=== PATIENT | female | born 1980 | race Caucasian/White ===

== ENCOUNTER 2016-10-06 12:45 | Inpatient (IN) | payer OTHER ==
[~2016-10-06 12:45] MED LIST: DEXTROSE 5%-LACTATED RINGERS 1,000 ML IV SCH
[2016-10-06 14:55] VITALS: BMI 35.2
[2016-10-06] MEDS ORDERED: ACETAMINOPHEN 325 MG TABLET (FP) PO ONE (15:30)
[2016-10-06 15:48] LABS: BASOPHIL 0.1 % (0-2.0); MCH 26.7 pg (25.7-33.7); MCHC 32.2 g/dl (32.0-36.0); MEAN CELL VOLUME 82.8 fl (80-96); MEAN PLT VOLUME 9.6 fl (7.5-11.1); PLATELET COUNT 202 K/MM3 (134-434); RDW 17.8 % (11.6-15.6); WHITE BLOOD COUNT 15.4 K/mm3 (4.0-10.0)
[2016-10-06 16:04] LABS: INR 0.96 (0.82-1.09); PROTHROMBIN TIME (PATIENT) 10.5 SEC (9.98-11.88)
[2016-10-06 16:07] LABS: ACTIVATED PTT 26.5 SECONDS (26.9-34.4)
[2016-10-06 16:29] LABS: ANION GAP 10 (8-16); CO2 22 mmol/L (21-32); CREATININE 0.8 mg/dL (0.55-1.02); GLUCOSE,RANDOM 100 mg/dL (74-106)
--- NOTE | 2016-10-06 19:17 | HP ---
Past Medical History - Admission Chief Complaint: Leakage of fluid History of Present Illness: 36 yo @ 40 weeks gestation, admitted due to complaints of leaking fluid. She denies any contractions pain nor vaginal bleeding. History Source: Patient Limitations to Obtaining History: No Limitations - Past Medical History ...: 1 ...Para: 0 ...Term: 0 ...: 0 ...Spon : 0 ...Induced : 0 ...Multiple Gestation: 0 ...LMP: 01/02/16 ... Weeks Gestation by Dates: 39.5 ...EDC by Dates: 10/08/16 ...EDC by Sono: 10/06/16 - Past Surgical History Past Surgical History: Yes: None Hx Myomectomy: No Hx Transabdominal Cerclage: No - Smoking History Smoking history: Never smoked Have you smoked in the past 12 months: No Aproximately how many cigarettes per day: 10 - Alcohol/Substance Use Hx Alcohol Use: No - Social History History of Recent Travel: No Home Medications - Allergies Allergies/Adverse Reactions: Allergies Allergy/AdvReac Type Severity Reaction Status Date / Time No Known Drug Allergies Allergy Verified 10/06/16 14:01 SEAFOOD Allergy Rash Uncoded 03/16/16 12:41 - Home Medications Home Medications: Ambulatory Orders Folic Acid 0.4 mg PO DAILY 10/06/16 Pnv95/Ferrous Fumarate/FA [ Vitamin Tablet] 1 each PO DAILY 10/06/16 Family Disease History - Family Disease History Family History: Unremarkable Review of Systems - Review of Systems Constitutional: reports: No Symptoms Eyes: reports: No Symptoms HENT: reports: No Symptoms Neck: reports: No Symptoms Cardiovascular: reports: No Symptoms Respiratory: reports: No Symptoms Gastrointestinal: reports: No Symptoms Genitourinary: reports: Other (Leakage of fluid) Breasts: reports: No Symptoms Reported Musculoskeletal: reports: No Symptoms Integumentary: reports: No Symptoms Neurological: reports: No Symptoms Endocrine: reports: No Symptoms Hematology/Lymphatic: reports: No Symptoms Psychiatric: reports: No Symptoms Pain Intensity: 2 Physical Exam - Maternity Vital Signs: Vital Signs Temperature 99.4 F 10/06/16 18:00 Pulse Rate 98 H 10/06/16 18:00 Respiratory Rate 20 10/06/16 18:00 Blood Pressure 139/71 10/06/16 18:00 O2 Sat by Pulse Oximetry (%) Constitutional: Yes: Well Nourished Eyes: Yes: Conjunctiva Clear HENT: Yes: Atraumatic Neck: Yes: Supple, Trachea Midline Cardiovascular: Yes: Regular Rate and Rhythm Lungs: Clear to auscultation - Abdominal Exam/OB Number of Fetuses: Single Presentation: Vertex Regularity: Irritability Intensity: Unaware - Vaginal Exam/OB Vaginal Bleediing: No Dilatation (cm): 1 Presentation: Vertex/Position Station: -3 - Physical Exam ...Motor Strength: WNL Psychiatric: Yes: Alert, Oriented - Labs Lab Results: CBC, BMP 10/06/16 14:30 10/06/16 14:30 Problem List - Problems (1) Leakage of amniotic fluid Code(s): O42.90 - FLAVIO ROM, 7TH0 BETW RUPT & ONST LABR, UNSP WEEKS OF GEST Assessment/Plan IUP @ 40 weeks R/O SROM Admit to L&D
[2016-10-06] MEDS ORDERED: CITRIC ACID/SODIUM CITRATE 30 ML UNIT-DOSE CUP PO ONE (19:24)
[2016-10-06] MEDS ORDERED: ELECTROLYTE-148 SOLN 500 ML IV ONE (19:24)
--- NOTE | 2016-10-06 19:24 | PN ---
Progress Note (short form) - Note Progress Note: 36 yo , @ 40 weeks gestation, admitted for c/o leakage of fluid. Came to see patient, no contractions pain, no vaginal bleeding. FHR : No accelerations, Non Reassuring [place] : Occasional contractions VE : 4/80 / -3 AROM clear Internal monitoring placed on scalp A / P : IUP @ 40 weeks Non-Reassuring heart rate Counseling to patient regarding delivery plan Consider Prep and shave Anesthesia to see patient Problem List - Problems (1) Leakage of amniotic fluid Code(s): O42.90 - FLAVIO ROM, 7TH0 BETW RUPT & ONST LABR, UNSP WEEKS OF GEST
[2016-10-06] MEDS ORDERED: ONDANSETRON 4 MG/2 ML VIAL IVPB PRN (20:19)
[2016-10-06 21:25] LABS: ARTERIAL BLD GAS O2 SATURATION 45.1 % (90-98.9); ARTERIAL BLOOD GAS BASE EXCESS -2.4 meq/l (-2-2); ARTERIAL BLOOD GAS pH 7.34 (7.35-7.45)
[2016-10-06 21:28] LABS: PT. ON O2? NO
[2016-10-06 21:30] LABS: ARTERIAL BLOOD GAS PO2 23.1 mmHg (80-100)
[2016-10-06] MEDS ORDERED: METHYLERGONOVINE MALEATE 0.2 MG/1 ML AMP IM PRN (21:33)
--- NOTE | 2016-10-06 21:38 | OP ---
Operative Note - Note: Operative Date: 10/06/16 Pre-Operative Diagnosis: Non Reassuring Heart rate Operation: Primary Low transverse Findings: Baby in cephallic presentation with malodorous amniotic fluid. Post-Operative Diagnosis: Same as Pre-op Surgeon: Janice Joshua Feather Stitcher: Mello lEliott Anesthesia: Spinal Specimens Removed: Placenta Estimated Blood Loss (mls): 800
[2016-10-06] MEDS ORDERED: D5W-LR W/ 20 UNITS OXYTOCIN 1,000 ML IV SCH (21:45)
[2016-10-06] MEDS: CLINDAMYCIN 600MG PREMIX IVPB 50 ML IVPB SCH (23:00)
[2016-10-07] MEDS ORDERED: CLINDAMYCIN 600MG PREMIX IVPB 50 ML IVPB SCH (02:53)
[2016-10-07] MEDS: CLINDAMYCIN 600MG PREMIX IVPB 50 ML IVPB SCH ×4 (03:37→22:40)
[2016-10-07] MEDS: AMPICILLIN NA/SULBACTAM NA 1.5 GM in SODIUM CHLORIDE 100 ML IVPB SCH ×4 (03:52→21:56)
[2016-10-07 07:13] LABS: BASOPHIL 0.1 % (0-2.0); MCH 26.5 pg (25.7-33.7); MCHC 31.7 g/dl (32.0-36.0); MEAN CELL VOLUME 83.5 fl (80-96); MEAN PLT VOLUME 9.1 fl (7.5-11.1); NEUTROPHILS 84.7 % (42.8-82.8); PLATELET COUNT 193 K/MM3 (134-434); RDW 17.6 % (11.6-15.6); WHITE BLOOD COUNT 13.9 K/mm3 (4.0-10.0)
[2016-10-07] MEDS ORDERED: OXYCODONE/APAP 5/325MG COMBO TABLET PO PRN (09:02)
--- NOTE | 2016-10-07 09:02 | PN ---
Post Progress Note - Subjective Subjective: 36 yo Para 1, status post primary , seen and evaluated. Doing well, no complaints. T max 100.1 BP 153 / 77 She's on antibiotics. Post Day: 1 Type of Delivery: Primary C/S Vital Signs: Vital Signs Temperature 99.0 F 10/07/16 05:59 Pulse Rate 106 H 10/07/16 05:59 Respiratory Rate 20 10/07/16 06:00 Blood Pressure 130/86 10/07/16 05:59 O2 Sat by Pulse Oximetry (%) 98 10/06/16 22:45 Breast Exam: Yes: Soft Uterus: Yes: Fundus Firm Incision: Yes: Dressing dry and intact Abdomen/GI: Yes: Abdomen soft Lochia: Yes: Rubra Lochia, amount: Small Extremities: Yes: Calves non-tender Activity: Other (She's lying in bed) - Labs Labs: CBC WBC 13.9 K/mm3 (4.0-10.0) H 10/07/16 06:30 RBC 3.36 M/mm3 (3.60-5.2) L 10/07/16 06:30 Hgb 8.9 GM/dL (10.7-15.3) L D 10/07/16 06:30 Hct 28.0 % (32.4-45.2) L 10/07/16 06:30 MCV 83.5 fl (80-96) 10/07/16 06:30 MCH 26.5 pg (25.7-33.7) 10/07/16 06:30 MCHC 31.7 g/dl (32.0-36.0) L 10/07/16 06:30 RDW 17.6 % (11.6-15.6) H 10/07/16 06:30 Plt Count 193 K/MM3 (134-434) 10/07/16 06:30 MPV 9.1 fl (7.5-11.1) 10/07/16 06:30 Neutrophils % 84.7 % (42.8-82.8) H 10/07/16 06:30 Lymphocytes % 9.9 % (8-40) D 10/07/16 06:30 Monocytes % 5.3 % (3.8-10.2) 10/07/16 06:30 Eosinophils % 0.0 % (0-4.5) 10/07/16 06:30 Basophils % 0.1 % (0-2.0) 10/07/16 06:30 Problem List - Problems (1) Leakage of amniotic fluid Code(s): O42.90 - FLAVIO ROM, 7TH0 BETW RUPT & ONST LABR, UNSP WEEKS OF GEST (2) Status post primary low transverse section Code(s): Z98.891 - HISTORY OF UTERINE SCAR FROM PREVIOUS SURGERY Assessment/Plan Status post primary Chorioamnionitis Continue Antibiotics Ambulation Analgesia as needed
[2016-10-07] MEDS ORDERED: oxyCODONE HCL 5 MG TABLET PO PRN (09:07)
--- NOTE | 2016-10-07 09:34 | PN ---
Progress Note (short form) - Note Progress Note: POD #1 - s/p under spinal anesthesia with duramorph. Pt. doing well, resting comfortably in bed. No complaints. Good pain control. No apparent anesthetic complications noted. Continue current care.
[2016-10-07] MEDS ORDERED: ACETAMINOPHEN 325 MG TABLET (FP) PO PRN (09:40)
--- NOTE | 2016-10-07 17:16 | HOSP ---
Physical Examination Vital Signs: Vital Signs Temperature 100.6 F H 10/07/16 14:50 Pulse Rate 114 H 10/07/16 14:50 Respiratory Rate 20 10/07/16 16:00 Blood Pressure 140/86 10/07/16 14:50 O2 Sat by Pulse Oximetry (%) 98 10/06/16 22:45 Labs: CBC, BMP 10/07/16 06:30 10/06/16 14:30
[2016-10-07] MEDS: IBUPROFEN 600 MG TABLET (FP) PO PRN (17:39)
[2016-10-07] MEDS: ACETAMINOPHEN 325 MG TABLET (FP) PO PRN (17:40)
[2016-10-07] MEDS: SIMETHICONE 80 MG TAB.CHEW (FP) PO PRN (17:41)
--- NOTE | 2016-10-07 17:59 | CONSULT ---
Consultation: REQUESTING PROVIDER: Dr Joshua CONSULT REQUEST: We have been asked to medically evaluate this patient for tachycardia, low grade fever . HISTORY OF PRESENT ILLNESS: This is a 36 yo F POD 1 s/p c section complicated by Chorioamnionitis, who developed tachycardia 114 anf fever 100.6. Patient was noted by the BURR GRINDER to have slightly foul smelling red vaginal discharge. Patient has not complaints at this time other than mild incision pain associated with movement. Per nursing staff, her dressings were changed 2x since surgery ans there is minimal serosanguineous discharge. Patient denies f/c, h/a, dizziness, chest pain, sob, cough, hemoptysis, abd pain ither than near incision, flank pain, dysuria, diarrhea, constipation, hematochezia, hematuria, dysuria, urgency, calf pain. She denies heavy vaginal discharge. She has not been using incentive spirometer since surgery REVIEW OF SYSTEMS: CONSTITUTIONAL: Absent: diaphoresis, generalized weakness, malaise, loss of appetite, weight change HEENT: Absent: rhinorrhea, nasal congestion, throat pain CARDIOVASCULAR: Absent: chest pain, syncope, palpitations, RESPIRATORY: Absent: cough, shortness of breath, orthopnea, wheezing, stridor, hemoptysis GASTROINTESTINAL: Absent: abdominal distension, nausea, vomiting, diarrhea, constipation, melena, hematochezia GENITOURINARY: Absent: dysuria, frequency, urgency, hesitancy, hematuria, flank pain MUSCULOSKELETAL: Absent: myalgia, arthralgia SKIN: Absent: rash, itching, pallor HEMATOLOGIC/IMMUNOLOGIC: Absent: easy bleeding, easy bruising, frequent infections ENDOCRINE: Absent: heat intolerance, cold intolerance NEUROLOGIC: Absent: headache, focal weakness or paresthesias PSYCHIATRIC: Absent: anxiety PHYSICAL EXAMINATION Vital Signs - 24 hr 10/06/16 10/06/16 10/06/16 18:00 21:55 22:15 Temperature 99.4 F 97.4 F L Pulse Rate 98 H 99 H 98 H Respiratory 20 30 H 30 H Rate Blood Pressure 139/71 145/64 139/65 O2 Sat by Pulse 100 100 Oximetry (%) 10/06/16 10/06/16 10/06/16 22:30 22:45 23:00 Temperature Pulse Rate 90 90 98 H Respiratory 28 H 28 H 26 H Rate Blood Pressure 139/72 140/73 125/75 O2 Sat by Pulse 99 98 Oximetry (%) 10/06/16 10/07/16 10/07/16 23:15 00:00 00:50 Temperature 99.5 F 99.1 F Pulse Rate 90 106 H Respiratory 24 20 Rate Blood Pressure 133/69 131/78 O2 Sat by Pulse Oximetry (%) 10/07/16 10/07/16 10/07/16 03:00 04:00 05:00 Temperature Pulse Rate Respiratory 20 20 20 Rate Blood Pressure O2 Sat by Pulse Oximetry (%) 10/07/16 10/07/16 10/07/16 05:59 06:00 07:00 Temperature 99.0 F Pulse Rate 106 H Respiratory 20 20 20 Rate Blood Pressure 130/86 O2 Sat by Pulse Oximetry (%) 10/07/16 10/07/16 10/07/16 08:00 08:40 09:00 Temperature 100.1 F H Pulse Rate 115 H Respiratory 20 20 20 Rate Blood Pressure 153/77 O2 Sat by Pulse Oximetry (%) 10/07/16 10/07/16 10/07/16 10:00 11:00 12:00 Temperature Pulse Rate Respiratory 20 20 20 Rate Blood Pressure O2 Sat by Pulse Oximetry (%) 10/07/16 10/07/16 10/07/16 13:00 14:00 14:50 Temperature 100.6 F H Pulse Rate 114 H Respiratory 20 20 20 Rate Blood Pressure 140/86 O2 Sat by Pulse Oximetry (%) 10/07/16 10/07/16 10/07/16 15:00 16:00 17:00 Temperature Pulse Rate Respiratory 20 20 20 Rate Blood Pressure O2 Sat by Pulse Oximetry (%) 10/07/16 17:44 Temperature 99.2 F Pulse Rate 107 H Respiratory 18 Rate Blood Pressure 141/76 O2 Sat by Pulse Oximetry (%) GENERAL: Awake, alert, and fully oriented, in no acute distress. HEAD: Normal with no signs of trauma. EYES: Pupils equal, round and reactive to light, extraocular movements intact, sclera anicteric, conjunctiva clear. No lid lag. EARS, NOSE, THROAT: Moist mucous membranes. NECK: supple without JVD LUNGS: Breath sounds equal, clear to auscultation bilaterally, slightly reduced sounds at bases HEART: Regular rate and rhythm, normal S1 and S2 grade 2 systolic ej murmur ABDOMEN: Soft, nontender, not distended, normoactive bowel sounds, no guarding, no rebound, no masses. No hepatomegaly or splenomegaly. Pelvis: incision [place] intact, well approximated, no drainage, no erythema or induration, dressing clean. Vaginal pad small amt of red discharge. MUSCULOSKELETAL: No CVA tenderness. UPPER EXTREMITIES: 2+ pulses, warm, well-perfused. No cyanosis. No clubbing. Cap refill <2 seconds. No peripheral edema. LOWER EXTREMITIES: 2+ pulses, warm, well-perfused. No calf tenderness. 2+ peripheral edema. NEUROLOGICAL: Cranial nerves II-XII grossly intact. Normal speech. PSYCHIATRIC: Cooperative. Good eye contact. Appropriate mood and affect. SKIN: Warm, dry Laboratory Results - last 24 hr 10/06/16 10/06/16 10/07/16 14:30 21:10 06:30 WBC 13.9 H RBC 3.36 L Hgb 8.9 L D Hct 28.0 L MCV 83.5 MCH 26.5 MCHC 31.7 L RDW 17.6 H Plt Count 193 MPV 9.1 Neutrophils % 84.7 H Lymphocytes % 9.9 D Monocytes % 5.3 Eosinophils % 0.0 Basophils % 0.1 Puncture Site Md puncture ABG pH 7.34 L ABG pCO2 at Pt Temp 43.5 ABG pO2 at Pt Temp 23.1 L* ABG HCO3 23.0 ABG O2 Sat (Measured) 45.1 L* ABG O2 Content 10.7 L ABG Base Excess -2.4 L Say Test Not applicable Oxygen Flow Rate No PEEP 0.0 RPR Titer Nonreactive Active Medications Generic Name Dose Route Start Last Admin Trade Name Freq PRN Reason Stop Dose Admin Acetaminophen 650 mg 10/07/16 09:08 10/07/16 17:40 Tylenol - PO 650 mg Q4H PRN Administration FEVER OR PAIN Acetaminophen 325 mg 10/07/16 09:40 Tylenol - PO 10/10/16 09:39 Q4H PRN PAIN LEVEL 1-5 Bisacodyl 10 mg 10/07/16 21:33 Dulcolax Suppository - RC PRN PRN CONSTIPATION Diphenhydramine HCl 25 mg 10/06/16 21:30 Benadryl Injection - IVPUSH Q4H PRN Pruritis Dextrose/Lactated Ringer's 1,000 mls @ 125 mls/hr 10/06/16 12:45 10/06/16 13:45 D5-Lr - IV 125 mls/hr ASDIR WALE Administration Ampicillin Sodium/Sulbactam 100 mls @ 200 mls/hr 10/07/16 03:00 10/07/16 15:07 Sodium 1.5 gm/ Sodium Chloride IVPB 10/08/16 02:59 200 mls/hr Q6H-IV WALE Administration Dextrose/Lactated Ringer's 1,000 mls @ 125 mls/hr 10/06/16 21:45 10/07/16 16:00 Pitocin 20 Units In D5-Lr - IV 125 mls/hr ASDIR WALE Administration Clindamycin Phosphate 50 mls @ 100 mls/hr 10/07/16 07:00 10/07/16 14:20 Cleocin 600 Mg Premix Ivpb - IVPB 100 mls/hr Q8H WALE Administration Ibuprofen 600 mg 10/06/16 21:33 10/07/16 17:39 Motrin - PO 600 mg Q4H PRN Administration PAIN Methylergonovine Maleate 0.2 mg 10/06/16 21:33 Methergine Injection - IM Q4H PRN Excessive Bleeding (L&D) Oxycodone HCl 5 mg 10/07/16 09:07 Roxicodone - PO Q4H PRN PAIN Oxycodone HCl 5 mg 10/07/16 09:40 Roxicodone - PO Q4H PRN PAIN LEVEL 1-5 Simethicone 80 mg 10/06/16 21:33 10/07/16 17:41 Mylicon - PO 80 mg Q4H PRN Administration GAS ASSESSMENT/PLAN: This is a 36 yo F POD 1 s/p c section complicated by Chorioamnionitis, who developed tachycardia 114 and fever 100.6. Sepsis due to chorioamnionitis or retained products of conception VS fever and tachycardia due to post op atelectasis -patient already on unasyn and clinda as of this AM as well as IVF @ 125 -collect blood, urine cultures, ua -wbc 13.9 w left shift so far trending down -cbc w diff, cmp, lactic acid, esr, crp -cxr, ekg -incentive spirometer -tylenol prn Anemia -due to post op blood loss -no active severe bleeding -monitor h/h Dispo: We will continue to follow the patient. Thank you for this consultative opportunity. Problem List - Problems (1) Sepsis Code(s): A41.9 - SEPSIS, UNSPECIFIED ORGANISM (2) Fever Code(s): R50.9 - FEVER, UNSPECIFIED (3) Tachycardia Code(s): R00.0 - TACHYCARDIA, UNSPECIFIED Visit type - Emergency Visit Emergency Visit: No - New Patient This patient is new to me today: Yes Date on this admission: 10/07/16 - Critical Care Critical Care patient: No
[2016-10-07 19:24] LABS: BASOPHIL 0.1 % (0-2.0); EOSINOPHIL 0.1 % (0-4.5); MCH 25.5 pg (25.7-33.7); MCHC 30.8 g/dl (32.0-36.0); MEAN CELL VOLUME 82.9 fl (80-96); MEAN PLT VOLUME 9.1 fl (7.5-11.1); NEUTROPHILS 86.2 % (42.8-82.8); PLATELET COUNT 217 K/MM3 (134-434); WHITE BLOOD COUNT 13.3 K/mm3 (4.0-10.0)
[2016-10-07 20:00] LABS: ANION GAP 9 (8-16); CALCIUM 8.1 mg/dL (8.5-10.1); CO2 24 mmol/L (21-32); CREATININE 0.8 mg/dL (0.55-1.02); GLUCOSE,RANDOM 117 mg/dL (74-106); SGOT/AST 18 U/L (15-37)
[2016-10-07 20:05] LABS: ALK PHOS 81 U/L (45-117); BILIRUBIN,TOTAL 0.3 mg/dL (0.2-1.0); SGPT/ALT 15 U/L (12-78); TOT PROT 5.3 g/dl (6.4-8.2)
--- NOTE | 2016-10-07 20:22 | PN ---
Teaching Attending Note Name of Resident: Christina Dahl ATTENDING PHYSICIAN STATEMENT I saw and evaluated the patient. I reviewed the resident's note and discussed the case with the resident. I agree with the resident's findings and plan as documented. SUBJECTIVE: Comfortable , mother at bedside. Has no complains at this times OBJECTIVE: Vital Signs Temperature 99.2 F 10/07/16 17:44 Pulse Rate 107 H 10/07/16 17:44 Respiratory Rate 18 10/07/16 18:00 Blood Pressure 141/76 10/07/16 17:44 O2 Sat by Pulse Oximetry (%) 98 10/06/16 22:45 CBCD WBC 13.3 K/mm3 (4.0-10.0) H 10/07/16 18:00 RBC 3.42 M/mm3 (3.60-5.2) L 10/07/16 18:00 Hgb 8.7 GM/dL (10.7-15.3) L 10/07/16 18:00 Hct 28.3 % (32.4-45.2) L 10/07/16 18:00 MCV 82.9 fl (80-96) 10/07/16 18:00 MCHC 30.8 g/dl (32.0-36.0) L 10/07/16 18:00 RDW 18.0 % (11.6-15.6) H 10/07/16 18:00 Plt Count 217 K/MM3 (134-434) 10/07/16 18:00 MPV 9.1 fl (7.5-11.1) 10/07/16 18:00 CMP Sodium 136 mmol/L (136-145) 10/07/16 18:00 Potassium 3.9 mmol/L (3.5-5.1) 10/07/16 18:00 Chloride 103 mmol/L (98-107) 10/07/16 18:00 Carbon Dioxide 24 mmol/L (21-32) 10/07/16 18:00 Anion Gap 9 (8-16) 10/07/16 18:00 BUN 7 mg/dL (7-18) D 10/07/16 18:00 Creatinine 0.8 mg/dL (0.55-1.02) 10/07/16 18:00 Creat Clearance w eGFR > 60 (>60) 10/07/16 18:00 Random Glucose 117 mg/dL (74-106) H 10/07/16 18:00 Calcium 8.1 mg/dL (8.5-10.1) L 10/07/16 18:00 Total Bilirubin 0.3 mg/dL (0.2-1.0) 10/07/16 18:00 AST 18 U/L (15-37) 10/07/16 18:00 ALT 15 U/L (12-78) 10/07/16 18:00 Alkaline Phosphatase 81 U/L (45-117) 10/07/16 18:00 Total Protein 5.3 g/dl (6.4-8.2) L 10/07/16 18:00 Albumin 2.0 g/dl (3.4-5.0) L 10/07/16 18:00 Current Medications Generic Name Dose Route Start Last Admin Trade Name Freq PRN Reason Stop Dose Admin Acetaminophen 650 mg 10/07/16 09:08 10/07/16 17:40 Tylenol - PO 650 mg Q4H PRN Administration FEVER OR PAIN Acetaminophen 325 mg 10/07/16 09:40 Tylenol - PO 10/10/16 09:39 Q4H PRN PAIN LEVEL 1-5 Bisacodyl 10 mg 10/07/16 21:33 Dulcolax Suppository - RC PRN PRN CONSTIPATION Diphenhydramine HCl 25 mg 10/06/16 21:30 Benadryl Injection - IVPUSH Q4H PRN Pruritis Dextrose/Lactated Ringer's 1,000 mls @ 125 mls/hr 10/06/16 12:45 10/06/16 13:45 D5-Lr - IV 125 mls/hr ASDIR WALE Administration Ampicillin Sodium/Sulbactam 100 mls @ 200 mls/hr 10/07/16 03:00 10/07/16 15:07 Sodium 1.5 gm/ Sodium Chloride IVPB 10/08/16 02:59 200 mls/hr Q6H-IV WALE Administration Dextrose/Lactated Ringer's 1,000 mls @ 125 mls/hr 10/06/16 21:45 10/07/16 16:00 Pitocin 20 Units In D5-Lr - IV 125 mls/hr ASDIR WALE Administration Clindamycin Phosphate 50 mls @ 100 mls/hr 10/07/16 07:00 10/07/16 14:20 Cleocin 600 Mg Premix Ivpb - IVPB 100 mls/hr Q8H WALE Administration Ibuprofen 600 mg 10/06/16 21:33 10/07/16 17:39 Motrin - PO 600 mg Q4H PRN Administration PAIN Methylergonovine Maleate 0.2 mg 10/06/16 21:33 Methergine Injection - IM Q4H PRN Excessive Bleeding (L&D) Oxycodone HCl 5 mg 10/07/16 09:07 Roxicodone - PO Q4H PRN PAIN Oxycodone HCl 5 mg 10/07/16 09:40 Roxicodone - PO Q4H PRN PAIN LEVEL 1-5 Simethicone 80 mg 10/06/16 21:33 10/07/16 17:41 Mylicon - PO 80 mg Q4H PRN Administration GAS Home Medications Medication Instructions Recorded Folic Acid 0.4 mg PO DAILY 10/06/16 Pnv95/Ferrous Fumarate/FA 1 each PO DAILY 10/06/16 [ Vitamin Tablet] PE: per resident's note ASSESSMENT AND PLAN: This is a 36 yo F POD 1 s/p c section complicated by Chorioamnionitis, who developed tachycardia 114 and fever 100.6. # Acute Sepsis due to chorioamnionitis , Panculture is ordered ,incentive spirometer, tylenol prn continue Unasyn/clindamycin Id consult on IVF 1/2 NS at 150c/hr., Lactic acid elevated will repeat the level in am also c-reactive protein is elevated as well Even though safe to breast feed, asked the patient ti dump the milk since can develop Cdiff/Diarrhea in the baby. # Anemia due to post op blood loss; no active severe bleeding ;monitor h/h Thank you for the consult
[2016-10-07 20:40] LABS: ERYTHROCYTE SEDIMENTATION RATE 82 mm/hr (0-20)
[2016-10-07] MEDS ORDERED: BISACODYL 10 MG SUPP.RECT RC PRN (21:33)
[2016-10-07] MEDS: SODIUM CHLORIDE 0.45% 1,000 ML IV SCH (22:07)
[2016-10-07 23:03] LABS: URINE APPEARANCE CLEAR; URINE BILIRUBIN NEGATIVE (NEGATIVE); URINE COLOR LTYELLOW; URINE GLUCOSE (UA) NEGATIVE (NEGATIVE); URINE KETONE NEGATIVE (NEGATIVE); URINE NITRITE NEGATIVE (NEGATIVE); URINE PROTEIN NEGATIVE (NEGATIVE); URINE UROBILINOGEN NEGATIVE E.U./dl (0.2-1.0)
[2016-10-07 23:12] LABS: URINE BLOOD 3+ (NEGATIVE); URINE LEUK ESTERASE 1+ (NEGATIVE)
[2016-10-07 23:14] LABS: URINE BACTERIA RARE /hpf (NONE SEEN); URINE RBC 141 /hpf (0-3); URINE WBC 96 /hpf (3-5)
[2016-10-08] MEDS: SIMETHICONE 80 MG TAB.CHEW (FP) PO PRN ×3 (02:05→20:54)
[2016-10-08] MEDS: ACETAMINOPHEN 325 MG TABLET (FP) PO PRN ×3 (02:05→20:54)
[2016-10-08] MEDS: IBUPROFEN 600 MG TABLET (FP) PO PRN (02:07)
[2016-10-08] MEDS: CLINDAMYCIN 600MG PREMIX IVPB 50 ML IVPB SCH ×4 (06:01→22:47)
[2016-10-08] MEDS: SODIUM CHLORIDE 0.45% 1,000 ML IV SCH (06:01)
[2016-10-08 08:17] LABS: BASOPHIL 0.3 % (0-2.0); EOSINOPHIL 0.3 % (0-4.5); MCH 26.2 pg (25.7-33.7); MCHC 31.8 g/dl (32.0-36.0); MEAN CELL VOLUME 82.3 fl (80-96); MEAN PLT VOLUME 8.2 fl (7.5-11.1); NEUTROPHILS 83.5 % (42.8-82.8); PLATELET COUNT 191 K/MM3 (134-434); RDW 17.7 % (11.6-15.6)
[2016-10-08 08:49] LABS: ALBUMIN 1.9 g/dl (3.4-5.0); ANION GAP 10 (8-16); CALCIUM 7.9 mg/dL (8.5-10.1); CO2 25 mmol/L (21-32); GLUCOSE,RANDOM 61 mg/dL (74-106)
[2016-10-08 08:54] LABS: ALK PHOS 78 U/L (45-117); BILIRUBIN,TOTAL 0.5 mg/dL (0.2-1.0); CREATININE 0.7 mg/dL (0.55-1.02); SGOT/AST 18 U/L (15-37); SGPT/ALT 14 U/L (12-78)
--- NOTE | 2016-10-08 09:10 | CONSULT ---
Consult Consult Specialty:: Infectious disease Reason for Consultation:: Probable endometritis - History of Present Illness Chief Complaint: Foul smelling vaginal discharge prior to C/section about 12hours ago, increased lactic acidosis, fever and tachycardia History of Present Illness: Patient is a 36 yr old [id number] 1 alive who had C/section at 40weeks gestation for failure to progress with vertex presentation. Had 4 doses of unasyn preop and had a dose of clindamycin. Awaiting urine, blood and wound swap culture results. She has elevated lactic acid and dropping Hgb. She had ruptured membranes 9 hours prior to presentation and labored for 7 hours before she had C/section There was no history of chills or fever, no headaches, no cough or SOB prior to delivery and no dysuria. The managing team noticed foul smelling discharge at delivery. No headaches or seizures. No history of glucose intolerance or HTN prior or during but she had a history of recurrent anemia and was on folic acid and iron. She had spinal anesthesia and has been ambulating since this morning. Has passed urine 3 times today, no dysuria. Child has no symptoms. - History Source History Provided By: Patient Limitations to Obtaining History: No Limitations - Past Medical History BAND CUTTER: No: CVA, Dementia, Seizure, Syncope Cardio/Vascular: No: HTN, Murmur Renal/: No: UTI ...: No (Had C/S about 12 hours ago to a life baby girl) ...: 1 ...Para: 1 Heme/Onc: Yes: Anemia (She admits recurrent anemia) Infectious Disease: No: HIV Endocrine: No: Diabetes Mellitus - Past Surgical History Past Surgical History: Yes: None, - Alcohol/Substance Use Hx Alcohol Use: No - Smoking History Smoking history: Never smoked Have you smoked in the past 12 months: No Aproximately how many cigarettes per day: 10 - Social History History of Recent Travel: No Home Medications - Allergies Allergies/Adverse Reactions: Allergies Allergy/AdvReac Type Severity Reaction Status Date / Time No Known Drug Allergies Allergy Verified 10/06/16 14:01 SEAFOOD Allergy Rash Uncoded 03/16/16 12:41 - Home Medications Home Medications: Ambulatory Orders Folic Acid 0.4 mg PO DAILY 10/06/16 Pnv95/Ferrous Fumarate/FA [ Vitamin Tablet] 1 each PO DAILY 10/06/16 Review of Systems - Review of Systems Constitutional: denies: Chills, Fever HENT: denies: Difficult Swallowing, Throat Pain Neck: denies: Stiffness, Tenderness Cardiovascular: denies: Chest Pain Respiratory: denies: Cough Gastrointestinal: reports: Vomiting (Had 2 episodes of vomitting during induction of anesthesia) Genitourinary: reports: Vaginal Bleeding (Normal lochia). denies: Burning, Dysuria Breasts: reports: Other (Baby is on formular) Integumentary: denies: Blister, Bruising Neurological: denies: Change in LOC, Confusion, Headache Hematology/Lymphatic: reports: Other (recurrent anemia during ) Physical Exam Vital Signs: Vital Signs Temperature 97.9 F 10/08/16 06:00 Pulse Rate 92 H 10/08/16 06:00 Respiratory Rate 18 10/08/16 06:00 Blood Pressure 135/79 10/08/16 06:00 O2 Sat by Pulse Oximetry (%) 98 10/06/16 22:45 Constitutional: Yes: Calm, Obese, Pallor (Mild pallor) Eyes: Yes: EOM Intact. No: Sclera Icterus HENT: Yes: Atraumatic. No: Drooling, Epistaxis, Nasal Congestion, Pharyngeal Erythema, Rhinnorhea, Thrush Neck: Yes: Supple Cardiovascular: Yes: Tachycardia, Murmur (?Upper sternal border on L), S1, S2 Respiratory: No: Cough, Diminished, Dullness, Hyperresonant, On Nasal O2, SOB Gastrointestinal: Yes: Abdomen, Obese, Other (Bowels sounds present, mild tenderness on R hypochondrial region away from dressing). No: Ascites, Tenderness, Epigastrium ...Rectal Exam: Yes: Deferred Renal/: No: Anuria, Bladder Distention, Su Present Edema: Yes Edema: LLE: 2+, RLE: 2+ (Bilateral pitting edema up to mohan) Peripheral Pulses WNL: Yes Integumentary: No: Petechiae, Pressure Ulcer, Rash Wound/Incision: Yes: Dressing Dry and Intact Psychiatric: Yes: Alert, Oriented Labs: CBC, BMP 10/08/16 07:45 10/08/16 07:45 Imaging - Results Chest X-ray: Report Reviewed (Had Chest Xray for SOB and tachycardia and no acute process was noted aside from a widened mediastinum) Problem List - Problems (1) Leakage of amniotic fluid Assessment/Plan: History of 16 hours of amniotic fluid leak prior to c/section and foul smelling vaginal discharge Code(s): O42.90 - FLAVIO ROM, 7TH0 BETW RUPT & ONST LABR, UNSP WEEKS OF GEST (2) Fever Assessment/Plan: Had a fever of 100.6 yesterday, has been afebrile ever since Code(s): R50.9 - FEVER, UNSPECIFIED (3) Tachycardia Assessment/Plan: Tachycardia with a murmur and history of recurrent anemia in Code(s): R00.0 - TACHYCARDIA, UNSPECIFIED (4) Endometritis Assessment/Plan: Awaiting urine, blood and wound swab culture results Continue clindamycin and unasyn Code(s): N71.9 - INFLAMMATORY DISEASE OF UTERUS, UNSPECIFIED Assessment/Plan Awaiting urine, blood and wound cultures stop iv unasyn continue clindamycin add ceftriaxone Visit type - Emergency Visit Emergency Visit: No - New Patient This patient is new to me today: Yes Date on this admission: 10/08/16 - Critical Care Critical Care patient: No
--- NOTE | 2016-10-08 09:34 | PN ---
Post Progress Note - Subjective Subjective: no c/o dizziness oob, ambulating, voiding without difficulty c/o hunger, passing flatus pain scale 7/10 Post Day: 2 Type of Delivery: Primary C/S Vital Signs: Vital Signs Temperature 97.9 F 10/08/16 06:00 Pulse Rate 92 H 10/08/16 06:00 Respiratory Rate 18 10/08/16 06:00 Blood Pressure 135/79 10/08/16 06:00 O2 Sat by Pulse Oximetry (%) 98 10/06/16 22:45 Breast Exam: Yes: Soft. No: Engorged Uterus: Yes: Fundus Firm, Fundus below umbilicus Incision: Yes: Dressing dry and intact. No: Redness, Oozing Abdomen/GI: Yes: Abdomen soft, Abdominal Distention (obese abdomen ), Tender, Passing flatus, Tolerating PO (clear liquids ) Lochia: Yes: Rubra Lochia, amount: Moderate Extremities: Yes: Calves non-tender, Edema (pedal edema ) Perineum: Yes: Intact Activity: Ambulating - Labs Labs: CBC WBC 14.0 K/mm3 (4.0-10.0) H 10/08/16 07:45 RBC 2.88 M/mm3 (3.60-5.2) L 10/08/16 07:45 Hgb 7.5 GM/dL (10.7-15.3) L D 10/08/16 07:45 Hct 23.7 % (32.4-45.2) L D 10/08/16 07:45 MCV 82.3 fl (80-96) 10/08/16 07:45 MCH 26.2 pg (25.7-33.7) 10/08/16 07:45 MCHC 31.8 g/dl (32.0-36.0) L 10/08/16 07:45 RDW 17.7 % (11.6-15.6) H 10/08/16 07:45 Plt Count 191 K/MM3 (134-434) 10/08/16 07:45 MPV 8.2 fl (7.5-11.1) 10/08/16 07:45 Neutrophils % 83.5 % (42.8-82.8) H 10/08/16 07:45 Lymphocytes % 10.0 % (8-40) D 10/08/16 07:45 Monocytes % 5.9 % (3.8-10.2) 10/08/16 07:45 Eosinophils % 0.3 % (0-4.5) D 10/08/16 07:45 Basophils % 0.3 % (0-2.0) 10/08/16 07:45 ESR 82 mm/hr (0-20) H 10/07/16 18:00 cultures pending Assessment/Plan s/p primary c/s , day#2, s/p ac chorioamnionitis, sebvere anemia pt is asymptomatic for anemia symtoms afebrile,, continue antibiotics as per ID recommendations ,on Iv unasyn & clindamicin encouragr ambulation, deep breathing, d/c iv , change to saline lock
[2016-10-08] MEDS: PRENATAL VITAMINS W/ FOLIC ACID TABLET (FP) PO SCH (10:17)
--- NOTE | 2016-10-08 10:42 | EKG ---
Test Reason : Blood Pressure : / mmHG Vent. Rate : 099 BPM Atrial Rate : 099 BPM P-R Int : 168 ms QRS Dur : 098 ms QT Int : 350 ms P-R-T Axes : 038 055 035 degrees QTc Int : 449 ms NORMAL SINUS RHYTHM INDETERMINATE AXIS BORDERLINE ECG NO PREVIOUS ECGS AVAILABLE Confirmed by LILLIANA REYES, PAULA ([id number]) on 10/08/2016 10:41:53 AM Referred By: Confirmed By:PAULA TIJERINA MD
[2016-10-08] MEDS ORDERED: CEFTRIAXONE 1 GM in DEXTROSE 5%-WATER - 50 ML IVPB SCH (11:15)
--- NOTE | 2016-10-08 12:02 | PN ---
Teaching Attending Note Name of Resident: Kay Enriquez ATTENDING PHYSICIAN STATEMENT I saw and evaluated the patient. I reviewed the resident's note and discussed the case with the resident. I agree with the resident's findings and plan as documented. SUBJECTIVE: asked to see for possible endometritis has been on unasyn and clindamycin 10/06 and 10/07 no sob no sexually active for last 6 months feels well no odor to lochia minimal abdominal pain ambulating s/p c section 10/06 hiv negative, group b strep screen negative OBJECTIVE: Vital Signs Period Temp Pulse Resp BP Sys/Lester Pulse Ox Last 24 Hr 97.9 F-100.6 F 92-114 18-20 135-147/76-92 cor rrr lungs clear abd soft, mild abdominal tenderness to palpation dressing post csection intact ext no edema CBC, BMP 10/08/16 07:45 10/08/16 07:45 cultures pending ASSESSMENT AND PLAN: resolving endometritis ?uti doing well post csection f/u cultures clindamycin/ceftriaxone for now
[2016-10-08] MEDS: CEFTRIAXONE 2 GM in DEXTROSE 5%-WATER - 100 ML IVPB SCH (12:16)
[2016-10-08] MEDS: oxyCODONE HCL 5 MG TABLET PO PRN ×2 (15:16→20:54)
[2016-10-08 16:42] LABS: MCH 25.4 pg (25.7-33.7); MEAN CELL VOLUME 81.9 fl (80-96); MEAN PLT VOLUME 8.5 fl (7.5-11.1); PLATELET COUNT 230 K/MM3 (134-434); RDW 17.9 % (11.6-15.6); WHITE BLOOD COUNT 15.8 K/mm3 (4.0-10.0)
[2016-10-08] MEDS: FERROUS SO4 325 MG TABLET (FP) PO SCH (17:53)
--- NOTE | 2016-10-08 18:16 | PN ---
Teaching Attending Note Name of Resident: Joel Barnett ATTENDING PHYSICIAN STATEMENT I saw and evaluated the patient. I reviewed the resident's note and discussed the case with the resident. I agree with the resident's findings and plan as documented. SUBJECTIVE: no fever or chills, feels better . Abd pain in Lower abd OBJECTIVE: NAD CV : RRR Lungs : CTAB ext : trace LE edema Abd : soft, ND , TTP in all quadrants, isidro suprapubic area, no rebound tenderness or guarding . NL BS wound with stables . no discharge ASSESSMENT AND PLAN: 36 y/o lady s/p C section 10/06 who developed tachycardia and endometritis . 1- sepssi due to Endometritis : WBC worsened . intrauterine cx with Non lactose fermenting G_ bacili . - cont CTX and clinda for now - follow urine cx to r/o UTI. - follow bloodc x - follow ID of intrauterine cx - dc IVF 2- acute blood loss anemia : stable HB. - no indication for transfusion 3- tachycardia , due to sepsis and anemia. no suspicion for PE. - Monitor will cont to follow
--- NOTE | 2016-10-08 18:33 | PN ---
Physical Exam: SUBJECTIVE: Patient seen and examined at bedside. No acute events overnight. Pt has no complaints at this time. Pt denies headache, cp, sob, abd pain, nausea, vomiting, diarrhea, dysuria, fever. OBJECTIVE: Vital Signs Period Temp Pulse Resp BP Sys/Lester Pulse Ox Last 24 Hr 97.9 F-99.0 F 92-111 18-20 135-147/73-92 GENERAL: The patient is awake, alert, and fully oriented, in no acute distress. HEAD: Normal with no signs of trauma. EYES: PERRL, extraocular movements intact, sclera anicteric, conjunctiva clear. No ptosis. ENT: Ears normal, nares patent, oropharynx clear without exudates, moist mucous membranes. NECK: Trachea midline, full range of motion, supple. LUNGS: Breath sounds equal, clear to auscultation bilaterally, no wheezes, no crackles, no accessory muscle use. HEART: Regular rate and rhythm, S1, S2 without murmur, rub or gallop. ABDOMEN: Soft, nontender, nondistended, normoactive bowel sounds, no guarding, no rebound, no hepatosplenomegaly, no masses. EXTREMITIES: 2+ pulses, warm, well-perfused, no edema. NEUROLOGICAL: Cranial nerves II through XII grossly intact. Normal speech, gait not observed. PSYCH: Normal mood, normal affect. SKIN: Warm, dry, normal turgor, no rashes or lesions noted Laboratory Results - last 24 hr 10/07/16 10/07/16 10/07/16 18:00 18:00 18:00 WBC 13.3 H RBC 3.42 L Hgb 8.7 L Hct 28.3 L MCV 82.9 MCH 25.5 L MCHC 30.8 L RDW 18.0 H Plt Count 217 MPV 9.1 Neutrophils % 86.2 H Lymphocytes % 8.3 Monocytes % 5.3 Eosinophils % 0.1 D Basophils % 0.1 ESR 82 H Sodium 136 Potassium 3.9 Chloride 103 Carbon Dioxide 24 Anion Gap 9 BUN 7 D Creatinine 0.8 Creat Clearance w eGFR > 60 Random Glucose 117 H Lactic Acid 2.9 H* Calcium 8.1 L Total Bilirubin 0.3 AST 18 ALT 15 Alkaline Phosphatase 81 C-Reactive Protein Total Protein 5.3 L Albumin 2.0 L Urine Color Urine Appearance Urine pH Ur Specific [place] Urine Protein Urine Glucose (UA) Urine Ketones Urine Blood Urine Nitrite Urine Bilirubin Urine Urobilinogen Ur Leukocyte Esterase Urine RBC Urine WBC Ur Epithelial Cells Urine Bacteria 10/07/16 10/07/16 10/08/16 18:00 21:30 00:10 WBC RBC Hgb Hct MCV MCH MCHC RDW Plt Count MPV Neutrophils % Lymphocytes % Monocytes % Eosinophils % Basophils % ESR Sodium Potassium Chloride Carbon Dioxide Anion Gap BUN Creatinine Creat Clearance w eGFR Random Glucose Lactic Acid 1.2 Calcium Total Bilirubin AST ALT Alkaline Phosphatase C-Reactive Protein 17.6 H Total Protein Albumin Urine Color Ltyellow Urine Appearance Clear Urine pH 6.0 Ur Specific [place] 1.010 Urine Protein Negative Urine Glucose (UA) Negative Urine Ketones Negative Urine Blood 3+ H Urine Nitrite Negative Urine Bilirubin Negative Urine Urobilinogen Negative Ur Leukocyte Esterase 1+ H Urine RBC 141 Urine WBC 96 Ur Epithelial Cells Few Urine Bacteria Rare 10/08/16 10/08/16 10/08/16 07:40 07:45 07:45 WBC 14.0 H RBC 2.88 L Hgb 7.5 L D Hct 23.7 L D MCV 82.3 MCH 26.2 MCHC 31.8 L RDW 17.7 H Plt Count 191 MPV 8.2 Neutrophils % 83.5 H Lymphocytes % 10.0 D Monocytes % 5.9 Eosinophils % 0.3 D Basophils % 0.3 ESR Sodium 138 Potassium 3.9 Chloride 103 Carbon Dioxide 25 Anion Gap 10 BUN 6 L Creatinine 0.7 Creat Clearance w eGFR > 60 Random Glucose 61 L D Lactic Acid 0.9 Calcium 7.9 L Total Bilirubin 0.5 D AST 18 ALT 14 Alkaline Phosphatase 78 C-Reactive Protein Total Protein 5.0 L Albumin 1.9 L Urine Color Urine Appearance Urine pH Ur Specific [place] Urine Protein Urine Glucose (UA) Urine Ketones Urine Blood Urine Nitrite Urine Bilirubin Urine Urobilinogen Ur Leukocyte Esterase Urine RBC Urine WBC Ur Epithelial Cells Urine Bacteria 10/08/16 15:40 WBC 15.8 H RBC 3.24 L Hgb 8.2 L Hct 26.5 L MCV 81.9 MCH 25.4 L MCHC 31.0 L RDW 17.9 H Plt Count 230 D MPV 8.5 Neutrophils % Lymphocytes % Monocytes % Eosinophils % Basophils % ESR Sodium Potassium Chloride Carbon Dioxide Anion Gap BUN Creatinine Creat Clearance w eGFR Random Glucose Lactic Acid Calcium Total Bilirubin AST ALT Alkaline Phosphatase C-Reactive Protein Total Protein Albumin Urine Color Urine Appearance Urine pH Ur Specific [place] Urine Protein Urine Glucose (UA) Urine Ketones Urine Blood Urine Nitrite Urine Bilirubin Urine Urobilinogen Ur Leukocyte Esterase Urine RBC Urine WBC Ur Epithelial Cells Urine Bacteria Active Medications Generic Name Dose Route Start Last Admin Trade Name Jennifer PRN Reason Stop Dose Admin Acetaminophen 650 mg 10/07/16 09:08 10/08/16 15:16 Tylenol - PO 650 mg Q4H PRN Administration FEVER OR PAIN Acetaminophen 325 mg 10/07/16 09:40 Tylenol - PO 10/10/16 09:39 Q4H PRN PAIN LEVEL 1-5 Bisacodyl 10 mg 10/07/16 21:33 Dulcolax Suppository - RC PRN PRN CONSTIPATION Diphenhydramine HCl 25 mg 10/06/16 21:30 Benadryl Injection - IVPUSH Q4H PRN Pruritis Ferrous Sulfate 325 mg 10/08/16 17:30 10/08/16 17:53 Feosol - PO 325 mg BIDWM WALE Administration Clindamycin Phosphate 50 mls @ 100 mls/hr 10/07/16 07:00 10/08/16 15:06 Cleocin 600 Mg Premix Ivpb - IVPB 100 mls/hr Q8H WALE Administration Ceftriaxone Sodium 2 gm/ 100 mls @ 200 mls/hr 10/08/16 12:00 10/08/16 12:16 Dextrose IVPB 200 mls/hr DAILY WALE Administration Ibuprofen 600 mg 10/06/16 21:33 10/08/16 02:07 Motrin - PO 600 mg Q4H PRN Administration PAIN Methylergonovine Maleate 0.2 mg 10/06/16 21:33 Methergine Injection - IM Q4H PRN Excessive Bleeding (L&D) Oxycodone HCl 5 mg 10/07/16 09:40 10/08/16 15:16 Roxicodone - PO 5 mg Q4H PRN Administration PAIN LEVEL 1-5 Multivit/Folic Acid/Iron 1 tab 10/08/16 10:00 10/08/16 10:17 Vitamins (Sjr) - PO 1 tab DAILY WALE Administration Simethicone 80 mg 10/06/16 21:33 10/08/16 15:16 Mylicon - PO 80 mg Q4H PRN Administration GAS ASSESSMENT/PLAN: This is a 36 yo F POD 1 s/p c section complicated by Chorioamnionitis, who developed tachycardia 114 and fever 100.6. #Sepsis 2/2 chorioamnionitis -ID on board. Giving Ceftriaxone & Clindamycin -D/C'ed IVF as patient is eating and drinking and had very swollen LE -collect blood, urine cultures, ua, pending -wbc 15.8 -f/u cbc w diff, bmp -cxr: no acute process, ekg: -incentive spirometer -tylenol prn #Anemia -due to post op blood loss -no active severe bleeding -monitor h/h Visit type - Emergency Visit Emergency Visit: No - New Patient This patient is new to me today: No - Critical Care Critical Care patient: No
[2016-10-09] MEDS: oxyCODONE HCL 5 MG TABLET PO PRN ×3 (00:54→19:42)
[2016-10-09] MEDS: SIMETHICONE 80 MG TAB.CHEW (FP) PO PRN ×3 (00:54→19:42)
[2016-10-09] MEDS: ACETAMINOPHEN 325 MG TABLET (FP) PO PRN ×3 (00:54→19:43)
--- NOTE | 2016-10-09 06:00 | PN ---
Physical Exam: SUBJECTIVE: Patient seen and examined at bedside. The patient complains of mild abdominal pain at her incision site. She also states she has a very small amount of vaginal bleeding. No acute events overnight. No other complaints. OBJECTIVE: Vital Signs Period Temp Pulse Resp BP Sys/Lester Pulse Ox Last 24 Hr 97.9 F-99.3 F 88-111 18-20 134-142/73-88 GENERAL: The patient is awake, alert, and fully oriented, in no acute distress. HEAD: Normal with no signs of trauma. EYES: PERRL, extraocular movements intact, sclera anicteric, conjunctiva clear. No ptosis. ENT: Ears normal, nares patent, oropharynx clear without exudates, moist mucous membranes. NECK: Trachea midline, full range of motion, supple. LUNGS: Breath sounds equal, clear to auscultation bilaterally, no wheezes, no crackles, no accessory muscle use. HEART: Regular rate and rhythm, S1, S2 without murmur, rub or gallop. ABDOMEN: Incision site CDI. Mild TTP related to incision. Soft, nondistended, normoactive bowel sounds, no guarding, no rebound, no hepatosplenomegaly, no masses. EXTREMITIES: 2+ pulses, warm, well-perfused, 2+ pedal edema b/l. NEUROLOGICAL: Cranial nerves II through XII grossly intact. Normal speech, gait not observed. PSYCH: Normal mood, normal affect. SKIN: Warm, dry, normal turgor, no rashes or lesions noted Laboratory Results - last 24 hr 10/07/16 10/08/16 10/08/16 21:30 07:40 07:45 WBC 14.0 H RBC 2.88 L Hgb 7.5 L D Hct 23.7 L D MCV 82.3 MCH 26.2 MCHC 31.8 L RDW 17.7 H Plt Count 191 MPV 8.2 Neutrophils % 83.5 H Lymphocytes % 10.0 D Monocytes % 5.9 Eosinophils % 0.3 D Basophils % 0.3 Sodium Potassium Chloride Carbon Dioxide Anion Gap BUN Creatinine Creat Clearance w eGFR Random Glucose Lactic Acid 0.9 Calcium Total Bilirubin AST ALT Alkaline Phosphatase Total Protein Albumin Urine Color Ltyellow Urine Appearance Clear Urine pH 6.0 Ur Specific [place] 1.010 Urine Protein Negative Urine Glucose (UA) Negative Urine Ketones Negative Urine Blood 3+ H Urine Nitrite Negative Urine Bilirubin Negative Urine Urobilinogen Negative Ur Leukocyte Esterase 1+ H Urine RBC 141 Urine WBC 96 Ur Epithelial Cells Few Urine Bacteria Rare 10/08/16 10/08/16 07:45 15:40 WBC 15.8 H RBC 3.24 L Hgb 8.2 L Hct 26.5 L MCV 81.9 MCH 25.4 L MCHC 31.0 L RDW 17.9 H Plt Count 230 D MPV 8.5 Neutrophils % Lymphocytes % Monocytes % Eosinophils % Basophils % Sodium 138 Potassium 3.9 Chloride 103 Carbon Dioxide 25 Anion Gap 10 BUN 6 L Creatinine 0.7 Creat Clearance w eGFR > 60 Random Glucose 61 L D Lactic Acid Calcium 7.9 L Total Bilirubin 0.5 D AST 18 ALT 14 Alkaline Phosphatase 78 Total Protein 5.0 L Albumin 1.9 L Urine Color Urine Appearance Urine pH Ur Specific [place] Urine Protein Urine Glucose (UA) Urine Ketones Urine Blood Urine Nitrite Urine Bilirubin Urine Urobilinogen Ur Leukocyte Esterase Urine RBC Urine WBC Ur Epithelial Cells Urine Bacteria Active Medications Generic Name Dose Route Start Last Admin Trade Name Kobeq PRN Reason Stop Dose Admin Acetaminophen 650 mg 10/07/16 09:08 10/09/16 00:54 Tylenol - PO 650 mg Q4H PRN Administration FEVER OR PAIN Acetaminophen 325 mg 10/07/16 09:40 Tylenol - PO 10/10/16 09:39 Q4H PRN PAIN LEVEL 1-5 Bisacodyl 10 mg 10/07/16 21:33 Dulcolax Suppository - RC PRN PRN CONSTIPATION Diphenhydramine HCl 25 mg 10/06/16 21:30 Benadryl Injection - IVPUSH Q4H PRN Pruritis Ferrous Sulfate 325 mg 10/08/16 17:30 10/08/16 17:53 Feosol - PO 325 mg BIDWM WALE Administration Clindamycin Phosphate 50 mls @ 100 mls/hr 10/07/16 07:00 10/08/16 22:47 Cleocin 600 Mg Premix Ivpb - IVPB 100 mls/hr Q8H WALE Administration Ceftriaxone Sodium 2 gm/ 100 mls @ 200 mls/hr 10/08/16 12:00 10/08/16 12:16 Dextrose IVPB 200 mls/hr DAILY WALE Administration Ibuprofen 600 mg 10/06/16 21:33 10/08/16 02:07 Motrin - PO 600 mg Q4H PRN Administration PAIN Methylergonovine Maleate 0.2 mg 10/06/16 21:33 Methergine Injection - IM Q4H PRN Excessive Bleeding (L&D) Oxycodone HCl 5 mg 10/07/16 09:40 10/09/16 00:54 Roxicodone - PO 5 mg Q4H PRN Administration PAIN LEVEL 1-5 Multivit/Folic Acid/Iron 1 tab 10/08/16 10:00 10/08/16 10:17 Vitamins (Sjr) - PO 1 tab DAILY WALE Administration Simethicone 80 mg 10/06/16 21:33 10/09/16 00:54 Mylicon - PO 80 mg Q4H PRN Administration GAS ASSESSMENT/PLAN: This is a 36 yo F POD 1 s/p c section complicated by Chorioamnionitis, who developed tachycardia 114 and fever 100.6. #Sepsis 2/2 chorioamnionitis -ID on board. Giving Ceftriaxone & Clindamycin -D/C'ed IVF as patient is eating and drinking and had very swollen LE -ua (10/07/16) pos for 3+ blood and 1+ leukocyte esterase -urine cultures (10/07/16) neg for bacterial growth -blood culture (10/07/16) no growth day 4 -wound culture (10/06/16) pos for Morganella morganii -wbc (10/09/16) 13.9 down from 15.8 -cxr (10/07/16) no acute process -ekg (10/07/16) normal sinus -incentive spirometer -tylenol prn #Anemia -due to post op blood loss -no active severe bleeding -Hb 7.6 (10/09/16) -Pt is asymptomatic #tachycardia resolved -now 89 bpm Visit type - Emergency Visit Emergency Visit: No - New Patient This patient is new to me today: No - Critical Care Critical Care patient: No
[2016-10-09] MEDS: CLINDAMYCIN 600MG PREMIX IVPB 50 ML IVPB SCH ×3 (06:22→23:02)
[2016-10-09 08:14] LABS: BASOPHIL 0.1 % (0-2.0); EOSINOPHIL 0.6 % (0-4.5); MCH 25.9 pg (25.7-33.7); MCHC 31.3 g/dl (32.0-36.0); MEAN CELL VOLUME 82.5 fl (80-96); MEAN PLT VOLUME 8.3 fl (7.5-11.1); NEUTROPHILS 86.1 % (42.8-82.8); PLATELET COUNT 229 K/MM3 (134-434); RDW 17.7 % (11.6-15.6); WHITE BLOOD COUNT 13.9 K/mm3 (4.0-10.0)
[2016-10-09] MEDS: PRENATAL VITAMINS W/ FOLIC ACID TABLET (FP) PO SCH (09:14)
[2016-10-09] MEDS: FERROUS SO4 325 MG TABLET (FP) PO SCH ×2 (09:14→17:09)
[2016-10-09 09:19] LABS: ANION GAP 11 (8-16); CO2 25 mmol/L (21-32); GLUCOSE,RANDOM 70 mg/dL (74-106)
[2016-10-09 09:20] LABS: CREATININE 0.6 mg/dL (0.55-1.02)
[2016-10-09] MEDS: CEFTRIAXONE 2 GM in DEXTROSE 5%-WATER - 100 ML IVPB SCH (10:20)
--- NOTE | 2016-10-09 11:02 | PN ---
Progress Note, Physician History of Present Illness: Patient seen this morning Day 2 on ceftriaxone, day 2 on clindamycin No new complaints Still leucophilic and neutrophilic Wound culture grew: Microbiology 10/06/16 21:00 Intrauterine Gram Stain - Final 10/06/16 21:00 Intrauterine Wound Culture - Preliminary Morganella Morganii Sensitive to ceftriaxone CBC WBC 13.9 K/mm3 (4.0-10.0) H 10/09/16 07:25 RBC 2.95 M/mm3 (3.60-5.2) L 10/09/16 07:25 Hgb 7.6 GM/dL (10.7-15.3) L 10/09/16 07:25 Hct 24.4 % (32.4-45.2) L 10/09/16 07:25 MCV 82.5 fl (80-96) 10/09/16 07:25 MCH 25.9 pg (25.7-33.7) 10/09/16 07:25 MCHC 31.3 g/dl (32.0-36.0) L 10/09/16 07:25 RDW 17.7 % (11.6-15.6) H 10/09/16 07:25 Plt Count 229 K/MM3 (134-434) 10/09/16 07:25 MPV 8.3 fl (7.5-11.1) 10/09/16 07:25 Neutrophils % 86.1 % (42.8-82.8) H 10/09/16 07:25 Lymphocytes % 8.6 % (8-40) 10/09/16 07:25 Monocytes % 4.6 % (3.8-10.2) 10/09/16 07:25 Eosinophils % 0.6 % (0-4.5) D 10/09/16 07:25 Basophils % 0.1 % (0-2.0) 10/09/16 07:25 ESR 82 mm/hr (0-20) H 10/07/16 18:00 - Current Medication List Current Medications: Active Medications Acetaminophen (Tylenol -) 650 mg PO Q4H PRN PRN Reason: FEVER OR PAIN Last Admin: 10/09/16 00:54 Dose: 650 mg Acetaminophen (Tylenol -) 325 mg PO Q4H PRN PRN Reason: PAIN LEVEL 1-5 Stop: 10/10/16 09:39 Bisacodyl (Dulcolax Suppository -) 10 mg RC PRN PRN PRN Reason: CONSTIPATION Diphenhydramine HCl (Benadryl Injection -) 25 mg IVPUSH Q4H PRN PRN Reason: Pruritis Ferrous Sulfate (Feosol -) 325 mg PO BIDWM [facility] Last Admin: 10/09/16 09:14 Dose: 325 mg Clindamycin Phosphate (Cleocin 600 Mg Premix Ivpb -) 50 mls @ 100 mls/hr IVPB Q8H [facility] Last Admin: 10/09/16 06:22 Dose: 100 mls/hr Ceftriaxone Sodium 2 gm/ (Dextrose) 100 mls @ 200 mls/hr IVPB DAILY [facility] Last Admin: 10/09/16 10:20 Dose: 200 mls/hr Ibuprofen (Motrin -) 600 mg PO Q4H PRN PRN Reason: PAIN Last Admin: 10/08/16 02:07 Dose: 600 mg Methylergonovine Maleate (Methergine Injection -) 0.2 mg IM Q4H PRN PRN Reason: Excessive Bleeding (L&D) Oxycodone HCl (Roxicodone -) 5 mg PO Q4H PRN PRN Reason: PAIN LEVEL 1-5 Last Admin: 10/09/16 00:54 Dose: 5 mg Multivit/Folic Acid/Iron ( Vitamins (Sjr) -) 1 tab PO DAILY [facility] Last Admin: 10/09/16 09:14 Dose: 1 tab Simethicone (Mylicon -) 80 mg PO Q4H PRN PRN Reason: GAS Last Admin: 10/09/16 00:54 Dose: 80 mg - Objective Vital Signs: Vital Signs Temperature 97.9 F 10/09/16 10:00 Pulse Rate 89 10/09/16 10:00 Respiratory Rate 18 10/09/16 10:00 Blood Pressure 135/89 10/09/16 10:00 O2 Sat by Pulse Oximetry (%) 98 10/06/16 22:45 Constitutional: Yes: Calm, Obese, Pallor (Mild pallor) Eyes: Yes: Conjunctiva Clear HENT: Yes: Atraumatic. No: Nasal Congestion, Pharyngeal Erythema, Rhinnorhea, Tonsillar Exudate Neck: Yes: Supple. No: Rigid, Tenderness Cardiovascular: Yes: S1, S2. No: Tachycardia Respiratory: No: Cough, On Nasal O2, On Venti-Mask, Rales, Rhonchi Gastrointestinal: Yes: Abdomen, Obese, Hypoactive Bowel Sounds (Bowel sounds present), Tenderness (over R hypochondrial region) Edema: Yes Edema: LLE: 2+ (Up to mid mohan bilaterally), RLE: 2+ Wound/Incision: Yes: Clean/Dry (Did not see any dressing on it) Neurological: Yes: Alert, Oriented Labs: CBC, BMP 10/09/16 07:25 10/09/16 07:25 INR, PTT INR 0.96 (0.82-1.09) 10/06/16 14:30 Problem List - Problems (1) Endometritis Assessment/Plan: Wound culture grew Morganella morganii sensitive to ceftriaxone Code(s): N71.9 - INFLAMMATORY DISEASE OF UTERUS, UNSPECIFIED (2) Leakage of amniotic fluid Assessment/Plan: Wound culture grew Morganella morganii sensitive to ceftriaxone Code(s): O42.90 - FLAVIO ROM, 7TH0 BETW RUPT & ONST LABR, UNSP WEEKS OF GEST Impression/Plan Impression/Plan: Endometritis , Morganella morganii sensitive to ceftriaxone Plan: Continue Ceftriaxone and clindamycin Visit type - Emergency Visit Emergency Visit: No - New Patient This patient is new to me today: No - Critical Care Critical Care patient: No - Discharge Referral Referred to [facility] No
--- NOTE | 2016-10-09 14:14 | PN ---
Teaching Attending Note Name of Resident: Joel Barnett ATTENDING PHYSICIAN STATEMENT I saw and evaluated the patient. I reviewed the resident's note and discussed the case with the resident. I agree with the resident's findings and plan as documented. SUBJECTIVE: no fever or chills. Abd pain has improved OBJECTIVE: NAD CV : RRR Lungs: CTAB ext : 1+ LE edema Abd : soft, ND , TTP in all quadrants, isidro suprapubic area, no rebound tenderness or guarding . NL BS wound with stables . no discharge ASSESSMENT AND PLAN: 36 y/o lady s/p C section 10/06 who developed tachycardia and endometritis . 1- Sepsis due to Endometritis : no fever , improved leukocytosis . intrauterine cx with Morganella sensitive to CTX - cont CTX and clinda for now , pending ID Recs - Urine cx with no growth ( low colony count ) - follow blood cx. no growth to date 2- acute blood loss anemia : stable HB. - no indication for transfusion 3- tachycardia , due to sepsis and anemia. no suspicion for PE. already improved . Microbiology 10/07/16 22:00 Urine Culture - Final Urine - Urine Clean Catch 10/06/16 21:00 Gram Stain - Final Intrauterine Wound Culture - Preliminary Morganella Morganii 10/07/16 18:00 Blood Culture - Preliminary Blood - Peripheral Venous NO GROWTH OBTAINED AFTER 24 HOURS, INCUBATION TO CONTINUE FOR 4 DAYS. 10/07/16 18:00 Blood Culture - Preliminary Blood - Peripheral Venous NO GROWTH OBTAINED AFTER 24 HOURS, INCUBATION TO CONTINUE FOR 4 DAYS.
--- NOTE | 2016-10-09 14:24 | PATH ---
Surgical Pathology Report Patient Name: PAWEL MARAVILLA Med. Rec. #: [id number] /Age/Gender: 1980 (Age: 36) / F Account: [id number] Location: [facility] OBS/RN OUTPATIENT SURGERY Taken: 10/07/2016 Received: 10/07/2016 Reported: 10/09/2016 Physicians: Janice Joshua M.D. Specimen(s) Received PLACENTA Clinical History Appendectomy 2013, cholecystectomy 2012 History of adjustment disorder with anxious mood Morbid obesity, alopecia areata, history of depression disorder, PTSD Nonreassuring heart rate Final Diagnosis PLACENTA, DELIVERY: FOCALLY DISRUPTED THIRD TRIMESTER PLACENTA WITH ACUTE CHORIOAMNIONITIS AND 3 VESSEL UMBILICAL CORD WITH ACUTE FUNISITIS. Electronically Signed Lyndon Pacheco M.D. Gross Description The specimen is received fresh labeled placenta and is a 732 gram, 23.0 x 18.0 x 2.8 cm. placenta with attached membranes and umbilical cord. The attached membranes are reyes, translucent and insert marginally. The umbilical cord measures 34 cm. in length and averages 1.1 cm. in diameter. The cord inserts eccentrically, 6.5 cm. to the nearest margin. No true knots or strictures are identified. Cut surface of the umbilical cord reveals 3 vessels. The surface is zepeda-blue with minimal fibrin deposition and appropriate caliber vessels. The maternal surface is red-brown with focal defects. Sectioning reveals red-brown, spongy parenchyma. No lesions are identified. Garment [employer] Hand sections are submitted in three cassettes as follows: 1- membrane rolls and umbilical cord; 2-3- full thickness sections of placenta. /10/08/2016 [facility]2016
[2016-10-09 16:46] LABS: MCH 25.6 pg (25.7-33.7); MCHC 31.1 g/dl (32.0-36.0); MEAN CELL VOLUME 82.4 fl (80-96); MEAN PLT VOLUME 8.5 fl (7.5-11.1); PLATELET COUNT 246 K/MM3 (134-434); RDW 18.3 % (11.6-15.6); WHITE BLOOD COUNT 14.2 K/mm3 (4.0-10.0)
--- NOTE | 2016-10-09 17:20 | PN ---
Teaching Attending Note Name of Resident: Kay Enriquez ATTENDING PHYSICIAN STATEMENT I saw and evaluated the patient. I reviewed the resident's note and discussed the case with the resident. I agree with the resident's findings and plan as documented. SUBJECTIVE: no fevers, feels well pain has decreased from 5 to7 to 4 to 3 OBJECTIVE: Vital Signs Period Temp Pulse Resp BP Sys/Lester Pulse Ox Last 24 Hr 97.9 F-99.3 F 88-96 18-20 134-153/78-89 cor-rrr lungs clear abd soft,csection incision clean and dry ext +edema CBC, BMP 10/09/16 16:00 10/09/16 07:25 Microbiology 10/06/16 21:00 Intrauterine Gram Stain - Final 10/06/16 21:00 Intrauterine Wound Culture - Final Morganella Morganii 10/07/16 22:00 Urine - Urine Clean Catch Urine Culture - Final 10/07/16 18:00 Blood - Peripheral Venous Blood Culture - Preliminary NO GROWTH OBTAINED AFTER 24 HOURS, INCUBATION TO CONTINUE FOR 4 DAYS. 10/07/16 18:00 Blood - Peripheral Venous Blood Culture - Preliminary NO GROWTH OBTAINED AFTER 24 HOURS, INCUBATION TO CONTINUE FOR 4 DAYS. ASSESSMENT AND PLAN: chorioamnionitis- doing well, afebrile, wbc trending down, continue ceftriaxone and clindamycin s/p csection 10/06
[2016-10-10] MEDS: SIMETHICONE 80 MG TAB.CHEW (FP) PO PRN (01:58)
[2016-10-10] MEDS: oxyCODONE HCL 5 MG TABLET PO PRN (01:58)
[2016-10-10] MEDS: ACETAMINOPHEN 325 MG TABLET (FP) PO PRN (01:59)
[2016-10-10] MEDS: CLINDAMYCIN 600MG PREMIX IVPB 50 ML IVPB SCH (06:34)
[2016-10-10 08:03] LABS: MCHC 31.6 g/dl (32.0-36.0); MEAN CELL VOLUME 82.5 fl (80-96); MEAN PLT VOLUME 7.9 fl (7.5-11.1); PLATELET COUNT 247 K/MM3 (134-434); WHITE BLOOD COUNT 11.6 K/mm3 (4.0-10.0)
--- NOTE | 2016-10-10 08:15 | PN ---
Progress Note (short form) - Note Progress Note: pod 4 , s/p c/s, chorio, on antibiotics no c/o , passing gas, voids ok, no excess vaginal bleeding, lochia mild ,no smell Last Vital Signs Temp Pulse Resp BP Pulse Ox 99.0 F 82 20 136/83 98 10/10/16 06:15 10/10/16 06:15 10/10/16 06:15 10/10/16 06:15 10/06/16 22:45 abdomen soft, no distension, no cva uterus firm, slightly tender no calf tenderness plan ambulate , cont iv antibiotics as per ID cbc
[2016-10-10 08:45] LABS: ANION GAP 6 (8-16); CALCIUM 8.2 mg/dL (8.5-10.1); CO2 29 mmol/L (21-32); CREATININE 0.7 mg/dL (0.55-1.02); GLUCOSE,RANDOM 69 mg/dL (74-106)
--- NOTE | 2016-10-10 10:16 | PN ---
Progress Note, Physician History of Present Illness: Patient seen this morning Day 3 on ceftriaxone, day 4 on clindamycin No new complains, no chills or fevers WBC still trending down discussed with nurse, ob considering discharge patient is eating now - Current Medication List Current Medications: Active Medications Acetaminophen (Tylenol -) 650 mg PO Q4H PRN PRN Reason: FEVER OR PAIN Last Admin: 10/10/16 01:59 Dose: 650 mg Bisacodyl (Dulcolax Suppository -) 10 mg RC PRN PRN PRN Reason: CONSTIPATION Diphenhydramine HCl (Benadryl Injection -) 25 mg IVPUSH Q4H PRN PRN Reason: Pruritis Ferrous Sulfate (Feosol -) 325 mg PO BIDWM [facility] Last Admin: 10/09/16 17:09 Dose: 325 mg Clindamycin Phosphate (Cleocin 600 Mg Premix Ivpb -) 50 mls @ 100 mls/hr IVPB Q8H [facility] Last Admin: 10/10/16 06:34 Dose: 100 mls/hr Ceftriaxone Sodium 2 gm/ (Dextrose) 100 mls @ 200 mls/hr IVPB DAILY [facility] Last Admin: 10/09/16 10:20 Dose: 200 mls/hr Ibuprofen (Motrin -) 600 mg PO Q4H PRN PRN Reason: PAIN Last Admin: 10/08/16 02:07 Dose: 600 mg Methylergonovine Maleate (Methergine Injection -) 0.2 mg IM Q4H PRN PRN Reason: Excessive Bleeding (L&D) Multivit/Folic Acid/Iron ( Vitamins (Sjr) -) 1 tab PO DAILY [facility] Last Admin: 10/09/16 09:14 Dose: 1 tab Simethicone (Mylicon -) 80 mg PO Q4H PRN PRN Reason: GAS Last Admin: 10/10/16 01:58 Dose: 80 mg - Objective Vital Signs: Vital Signs Temperature 99.0 F 10/10/16 06:15 Pulse Rate 82 10/10/16 06:15 Respiratory Rate 20 10/10/16 06:15 Blood Pressure 136/83 10/10/16 06:15 O2 Sat by Pulse Oximetry (%) 98 10/06/16 22:45 CBC WBC 11.6 K/mm3 (4.0-10.0) H 10/10/16 07:30 RBC 3.01 M/mm3 (3.60-5.2) L 10/10/16 07:30 Hgb 7.8 GM/dL (10.7-15.3) L 10/10/16 07:30 Hct 24.9 % (32.4-45.2) L 10/10/16 07:30 MCV 82.5 fl (80-96) 10/10/16 07:30 MCH 26.0 pg (25.7-33.7) 10/10/16 07:30 MCHC 31.6 g/dl (32.0-36.0) L 10/10/16 07:30 RDW 18.0 % (11.6-15.6) H 10/10/16 07:30 Plt Count 247 K/MM3 (134-434) 10/10/16 07:30 MPV 7.9 fl (7.5-11.1) 10/10/16 07:30 Neutrophils % Y 10/10/16 07:30 Lymphocytes % Y 10/10/16 07:30 Monocytes % 4.6 % (3.8-10.2) 10/09/16 07:25 Eosinophils % 0.6 % (0-4.5) D 10/09/16 07:25 Basophils % 0.1 % (0-2.0) 10/09/16 07:25 ESR 82 mm/hr (0-20) H 10/07/16 18:00 Constitutional: Yes: Calm, Obese. No: Diaphoresis Eyes: Yes: Conjunctiva Clear. No: Sclera Icterus HENT: No: Drooling, Nasal Congestion, Pharyngeal Erythema, Rhinnorhea, Tonsillar Exudate Neck: Yes: Supple. No: Rigid, Tenderness Cardiovascular: Yes: S1, S2. No: Tachycardia Respiratory: Yes: CTA Bilaterally. No: Rales, Rhonchi, Tachypnea Gastrointestinal: Yes: Normal Bowel Sounds, Tenderness (mild tenderness of incision site, [place] in place, wound dry) ...Rectal Exam: Yes: Deferred Genitourinary: Yes: Vaginal Bleeding (Minimal). No: Su Present, Vaginal Discharge Extremities: No: Calf Tenderness, Cold, Cyanosis, Deformity Edema: Yes Edema: LLE: 2+, RLE: 2+ Peripheral Pulses WNL: Yes Wound/Incision: Yes: Clean/Dry, Well Approximated, Downs Intact (C/section site) Psychiatric: Yes: Alert, Oriented Labs: CBC, BMP 10/10/16 07:30 10/10/16 07:30 INR, PTT INR 0.96 (0.82-1.09) 10/06/16 14:30 Problem List - Problems (1) Chorioamnionitis Assessment/Plan: History of foul smelling vaginal discharge s/p C/section, wound culture of Morganella morganii Elevated WBC, now trending down 3rd day on Clindamycin, and ceftriaxone Plan: Switch to oral levoquin and flagyl currently not but to pump and discard while on levoquin Code(s): O41.1290 - CHORIOAMNIONITIS, UNSP TRIMESTER, NOT APPLICABLE OR UNSP (2) Endometritis Code(s): N71.9 - INFLAMMATORY DISEASE OF UTERUS, UNSPECIFIED (3) Leakage of amniotic fluid Assessment/Plan: Wound culture grew Morganella morganii sensitive to ceftriaxone Code(s): O42.90 - FLAVIO ROM, 7TH0 BETW RUPT & ONST LABR, UNSP WEEKS OF GEST Impression/Plan Impression/Plan: Plan: Continue Clindamycin and ceftriaxone Visit type - Emergency Visit Emergency Visit: No - New Patient This patient is new to me today: No - Critical Care Critical Care patient: No - Discharge Referral Referred to [facility] Med P.C.: No
[2016-10-10] MEDS: CEFTRIAXONE 2 GM in DEXTROSE 5%-WATER - 100 ML IVPB SCH (10:17)
[2016-10-10] MEDS: FERROUS SO4 325 MG TABLET (FP) PO SCH (10:17)
[2016-10-10] MEDS: PRENATAL VITAMINS W/ FOLIC ACID TABLET (FP) PO SCH (10:17)
--- NOTE | 2016-10-10 11:36 | PN ---
Teaching Attending Note Name of Resident: Kay Enriquez ATTENDING PHYSICIAN STATEMENT I saw and evaluated the patient. I reviewed the resident's note and discussed the case with the resident. I agree with the resident's findings and plan as documented. SUBJECTIVE: doing well minimal abdominal discomfort day #3 ceftriaxone and clindamycin OBJECTIVE: Vital Signs Period Temp Pulse Resp BP Sys/Lester Pulse Ox Last 24 Hr 98.0 F-99.0 F 82-96 18-20 136-153/75-88 cor-rrr lungs- clear abd soft,nt ext less edema CBC, BMP 10/10/16 07:30 10/10/16 07:30 Microbiology 10/07/16 18:00 Blood - Peripheral Venous Blood Culture - Preliminary NO GROWTH OBTAINED AFTER 48 HOURS, INCUBATION TO CONTINUE FOR 3 DAYS. 10/07/16 18:00 Blood - Peripheral Venous Blood Culture - Preliminary NO GROWTH OBTAINED AFTER 48 HOURS, INCUBATION TO CONTINUE FOR 3 DAYS. 10/06/16 21:00 Intrauterine Gram Stain - Final 10/06/16 21:00 Intrauterine Wound Culture - Final Morganella Morganii 10/07/16 22:00 Urine - Urine Clean Catch Urine Culture - Final Current Medications Acetaminophen (Tylenol -) 650 mg PO Q4H PRN PRN Reason: FEVER OR PAIN Last Admin: 10/10/16 01:59 Dose: 650 mg Bisacodyl (Dulcolax Suppository -) 10 mg RC PRN PRN PRN Reason: CONSTIPATION Diphenhydramine HCl (Benadryl Injection -) 25 mg IVPUSH Q4H PRN PRN Reason: Pruritis Ferrous Sulfate (Feosol -) 325 mg PO BIDWM [facility] Last Admin: 10/10/16 10:17 Dose: 325 mg Clindamycin Phosphate (Cleocin 600 Mg Premix Ivpb -) 50 mls @ 100 mls/hr IVPB Q8H [facility] Last Admin: 10/10/16 06:34 Dose: 100 mls/hr Ceftriaxone Sodium 2 gm/ (Dextrose) 100 mls @ 200 mls/hr IVPB DAILY [facility] Last Admin: 10/10/16 10:17 Dose: 200 mls/hr Ibuprofen (Motrin -) 600 mg PO Q4H PRN PRN Reason: PAIN Last Admin: 10/08/16 02:07 Dose: 600 mg Methylergonovine Maleate (Methergine Injection -) 0.2 mg IM Q4H PRN PRN Reason: Excessive Bleeding (L&D) Multivit/Folic Acid/Iron ( Vitamins (Sjr) -) 1 tab PO DAILY [facility] Last Admin: 10/10/16 10:17 Dose: 1 tab Simethicone (Mylicon -) 80 mg PO Q4H PRN PRN Reason: GAS Last Admin: 10/10/16 01:58 Dose: 80 mg ASSESSMENT AND PLAN: chorioamnionitis- doing well, overall improved if discharged home can switch to po levaquin/flagyl and finish 7 days total patient to pump and dump while on antibiotics d/w Dr Martinez edema improving anemia noted
[2016-10-10 11:37] LABS: PLATELET ESTIMATE ADEQUATE (NORMAL)
--- NOTE | 2016-10-10 13:04 | PN ---
Physical Exam: SUBJECTIVE: Patient seen and examined at bedside. No acute events overnight. Pt complains of mild lower abdominal pain and foot swelling, both much improved since yesterday. No other complaints at this time. Pt denies fever, palpitations , headache, cp, sob, abd pain, nausea, vomiting, diarrhea. OBJECTIVE: Vital Signs Period Temp Pulse Resp BP Sys/Lester Pulse Ox Last 24 Hr 97.8 F-99.0 F 82-96 18-20 136-153/75-88 GENERAL: The patient is awake, alert, and fully oriented, in no acute distress. HEAD: Normal with no signs of trauma. EYES: extraocular movements grossly intact, sclera anicteric, conjunctiva clear. No ptosis. ENT: oropharynx clear without exudates, moist mucous membranes. NECK: Trachea midline, full range of motion, supple. LUNGS: Breath sounds equal, clear to auscultation bilaterally, no wheezes, no crackles, no accessory muscle use. HEART: Regular rate and rhythm, S1, S2 without murmur, rub or gallop. ABDOMEN: obese. incision clean dry and intact. Soft, nontender, nondistended, normoactive bowel sounds, no guarding, no rebound, no hepatosplenomegaly, no masses. EXTREMITIES: 2+ pulses, warm, well-perfused, no edema. NEUROLOGICAL: Cranial nerves II through XII grossly intact. Normal speech, gait not observed. PSYCH: Normal mood, normal affect. SKIN: Warm, dry, normal turgor, no rashes or lesions noted Laboratory Results - last 24 hr 10/09/16 10/10/16 10/10/16 16:00 07:30 07:30 WBC 14.2 H 11.6 H RBC 3.01 L 3.01 L Hgb 7.7 L 7.8 L Hct 24.8 L 24.9 L MCV 82.4 82.5 MCH 25.6 L 26.0 MCHC 31.1 L 31.6 L RDW 18.3 H 18.0 H Plt Count 246 247 MPV 8.5 7.9 Neutrophils % 76.0 Lymphocytes % 15.0 D Monocytes % 4.0 Eosinophils % 1.0 Band Neutrophils 4.0 Platelet Estimate Adequate Sodium 142 Potassium 4.3 Chloride 107 Carbon Dioxide 29 Anion Gap 6 L BUN 6 L Creatinine 0.7 Random Glucose 69 L Calcium 8.2 L Active Medications Generic Name Dose Route Start Last Admin Trade Name Freq PRN Reason Stop Dose Admin Acetaminophen 650 mg 10/07/16 09:08 10/10/16 01:59 Tylenol - PO 650 mg Q4H PRN Administration FEVER OR PAIN Bisacodyl 10 mg 10/07/16 21:33 Dulcolax Suppository - RC PRN PRN CONSTIPATION Diphenhydramine HCl 25 mg 10/06/16 21:30 Benadryl Injection - IVPUSH Q4H PRN Pruritis Ferrous Sulfate 325 mg 10/08/16 17:30 10/10/16 10:17 Feosol - PO 325 mg BIDWM [facility] Administration Clindamycin Phosphate 50 mls @ 100 mls/hr 10/07/16 07:00 10/10/16 06:34 Cleocin 600 Mg Premix Ivpb - IVPB 100 mls/hr Q8H [facility] Administration Ceftriaxone Sodium 2 gm/ 100 mls @ 200 mls/hr 10/08/16 12:00 10/10/16 10:17 Dextrose IVPB 200 mls/hr DAILY [facility] Administration Ibuprofen 600 mg 10/06/16 21:33 10/08/16 02:07 Motrin - PO 600 mg Q4H PRN Administration PAIN Methylergonovine Maleate 0.2 mg 10/06/16 21:33 Methergine Injection - IM Q4H PRN Excessive Bleeding (L&D) Multivit/Folic Acid/Iron 1 tab 10/08/16 10:00 10/10/16 10:17 Vitamins (Sjr) - PO 1 tab DAILY [facility] Administration Simethicone 80 mg 10/06/16 21:33 10/10/16 01:58 Mylicon - PO 80 mg Q4H PRN Administration GAS ASSESSMENT/PLAN: This is a 36 yo F POD 1 s/p c section complicated by Chorioamnionitis, who developed tachycardia 114 and fever 100.6. #Sepsis 2/2 chorioamnionitis: Resolved. -per ID note patient can be switched to PO Levaquin and Flagyl -pt afebrile and normocardic at this time -D/C'ed IVF as patient is eating and drinking and had very swollen LE -ua (10/07/16) pos for 3+ blood and 1+ leukocyte esterase -urine cultures (10/07/16) neg for bacterial growth -blood culture (10/07/16) no growth day 4 -wound culture (10/06/16) pos for Morganella morganii -wbc (10/09/16) 13.9 down from 15.8 -cxr (10/07/16) no acute process -ekg (10/07/16) normal sinus -incentive spirometer -tylenol prn #Anemia -due to post op blood loss -no active severe bleeding -Hb 7.6 (10/09/16) -Pt is asymptomatic #tachycardia resolved -now 89 bpm Please feel free to call us in the future if you have any questions or concerns. Thank you for this consultative opportunity. Visit type - Emergency Visit Emergency Visit: No - New Patient This patient is new to me today: No - Critical Care Critical Care patient: No
[2016-10-10 13:32] VITALS: BP 153/85; PULSE 88; TEMP 98.7
--- NOTE | 2016-10-10 14:01 | PN ---
Teaching Attending Note Name of Resident: Joel Barnett ATTENDING PHYSICIAN STATEMENT I saw and evaluated the patient. I reviewed the resident's note and discussed the case with the resident. I agree with the resident's findings and plan as documented. SUBJECTIVE: nof ever or chills, has minimal ABd pain. minimal vaginal bleed and discharge . no SOB or palpitations OBJECTIVE: NAD CV : RRR Lungs: CTAB ext : 1+ LE edema ASSESSMENT AND PLAN: 36 y/o lady s/p C section 10/06 who developed tachycardia and endometritis . 1- Sepsis due to Endometritis : resolving , no more fever and leukocytosis has almost resolved . intrauterine cx with Shonda d/w Dr. Goodman last night . dc on levaquin and flagyl . instructed to call MD with any fever or worsening abd pain . pump and dump breast milk while on ABx, she understands staple removal in 1 week 2- acute blood loss anemia : stable HB. - no indication for transfusion 3- tachycardia , due to sepsis and anemia. resolved . . 4- slightly elevated BP. will prescribe blood pressure cuff and pt was instructed to check daily and take log to PCP in 1 week
== END 2016-10-10 15:00 | disposition home or self-care (01) | DRG 540 ==
LOC: JDEL 12:45 → JLDR 13:35 → J3W 10-07 01:16
PROVIDERS: ADMIT Obstetrics & Gynecology; ATTEND Obstetrics & Gynecology
PROC: 10D00Z1 Extraction of Products of Conception, Low, Open Approach (ICD-10-PCS; principal; 2016-10-06)
DX: O76 Abnormality in fetal heart rate and rhythm complicating labor and delivery (principal); O42.92 Full-term premature rupture of membranes, unspecified as to length of time between rupture and onset of labor; O41.1230 Chorioamnionitis, third trimester, not applicable or unspecified; O48.0 Post-term pregnancy; O75.89 Other specified complications of labor and delivery; O85 Puerperal sepsis; B96.89 Other specified bacterial agents as the cause of diseases classified elsewhere; I97.89 Other postprocedural complications and disorders of the circulatory system, not elsewhere classified; R00.0 Tachycardia, unspecified; O90.81 Anemia of the puerperium; D62 Acute posthemorrhagic anemia; J95.89 Other postprocedural complications and disorders of respiratory system, not elsewhere classified; J98.11 Atelectasis; O99.214 Obesity complicating childbirth; Z3A.40 40 weeks gestation of pregnancy; Z37.0 Single live birth
CPT/HCPCS: 36415; 36600; 71010-TC; 80048; 80053; 81003; 81015; 82803; 83605; 85025; 85027; 85610; 85651; 85730; 86140; 86593; 86850; 86900; 86901; 87040; 87070; 87086; 87186; 87205; 88307-TC; 93005; 93010; 94010

== ENCOUNTER → 2017-11-12 | Day surgery (SDC) | payer OTHER ==
--- NOTE | 2017-11-13 17:03 | PATH ---
Cytology Non-Gynecological Report Patient Name: PAWEL MARAVILLA [facility]. Rec. #: [id number] /Age/Gender: 1980 (Age: 37) / F Account: [id number] Location: RADIOLOGY INTER Taken: 11/13/2017 Received: 11/13/2017 Reported: 11/13/2017 Physicians: Janice Messina M.D. Specimen(s) Received THYROID FNA Clinical History Left thyroid nodule, 3.98 x 3.44 x 2.68 cm Final Diagnosis THYROID, LEFT, FINE NEEDLE ASPIRATION: SATISFACTORY FOR EVALUATION. BETHESDA CLASS II: BENIGN. CYTOLOGIC FINDINGS ARE CONSISTENT WITH A BENIGN FOLLICULAR NODULE. SMALL FOLLICULAR CELLS DISPERSED A CELLULAR FRAGMENTS, MACRO FOLLICLES AND CLUSTERS IN A BACKGROUND OF ABUNDANT COLLOID PRESENT. Electronically Signed Nicki Ibarra M.D. Gross Description Received are eight direct smears, four of which are air-dried and Diff-Quik stained, and four of which are alcohol fixed and Pap stained. Also received is 15 ml of bloody formalin from which one cellblock is prepared.
== END | disposition home or self-care (01) ==
LOC: JRADIR 08:50
PROVIDERS: ATTEND Internal Medicine Endocrinology, Diabetes & Metabolism
PROC: 0G9G3ZX Drainage of Left Thyroid Gland Lobe, Percutaneous Approach, Diagnostic (ICD-10-PCS; principal; 2017-11-12)
DX: E04.1 Nontoxic single thyroid nodule (principal)
CPT/HCPCS: 76942; 88173; 88305-TC

== ENCOUNTER 2018-02-02 18:43 | Emergency (ER) | payer OTHER ==
[2018-02-02 18:51] VITALS: BP 145/88; PULSE 85; TEMP 99; BMI 29.6
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
[2018-02-02] MEDS ORDERED: ACETAMINOPHEN 500 MG TABLET (FP) PO ONE (19:14)
[2018-02-02] MEDS ORDERED: ACETAMINOPHEN 500 MG TABLET (FP) ONE (19:17)
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
== END 2018-02-02 19:24 | disposition home or self-care (01) ==
LOC: JERFT 18:43
DX: M54.12 Radiculopathy, cervical region (principal); R51 Headache
CPT/HCPCS: 99281-25

== ENCOUNTER → 2019-05-25 | Day surgery (SDC) | payer OTHER | END | disposition home or self-care (01) | LOC: JRADUS-SUR 08:36 | PROVIDERS: ATTEND Obstetrics & Gynecology | DX: Z53.8 Procedure and treatment not carried out for other reasons (principal) | CPT/HCPCS: 84703 ==

== ENCOUNTER → 2019-05-26 | Day surgery (SDC) | payer OTHER | END | disposition home or self-care (01) | LOC: JRADUS-SUR 06:50 | PROVIDERS: ATTEND Obstetrics & Gynecology | PROC: BU18YZZ Fluoroscopy of Uterus and Fallopian Tubes using Other Contrast (ICD-10-PCS; principal; 2019-05-26) | DX: N97.1 Female infertility of tubal origin (principal) | CPT/HCPCS: 58340; 74740-TC-FY; 76000-TC-FY ==

== ENCOUNTER 2019-12-06 22:08 | Emergency (ER) | payer OTHER ==
[2019-12-06 22:24] VITALS: BP 147/93; TEMP 97.8; BMI 31.3
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
[2019-12-07] MEDS ORDERED: ACETAMINOPHEN 325 MG TABLET (FP) PO ONE (01:30)
[2019-12-07] MEDS ORDERED: ACETAMINOPHEN 325 MG TABLET (FP) ONE (02:07)
[2019-12-07] MEDS ORDERED: KETOROLAC TROMETHAMINE 30 MG/1 ML VIAL IM ONE (04:16)
[2019-12-07] MEDS ORDERED: KETOROLAC TROMETHAMINE 30 MG/1 ML VIAL ONE (04:25)
[2019-12-07 04:31] VITALS: PULSE 78
== END 2019-12-07 04:31 | disposition home or self-care (01) ==
LOC: JER 22:08
PROC: 3E0233Z Introduction of Anti-inflammatory into Muscle, Percutaneous Approach (ICD-10-PCS; principal; 2019-12-06)
DX: M54.12 Radiculopathy, cervical region (principal)
CPT/HCPCS: 72125-TC; 72131-TC; 84703; 99284-25